=== PATIENT | male | born 1955 | race Caucasian/White ===

== ENCOUNTER 2019-04-11 14:44 | Outpatient (RCR) | payer MEDICAID, SELFPAY | END 2019-04-11 23:59 | disposition home or self-care (01) | LOC: ANHAUDIO 14:44 | DX: Z46.1 Encounter for fitting and adjustment of hearing aid (principal) | CPT/HCPCS: 99199 ==

== ENCOUNTER 2019-11-30 12:20 | Outpatient (RCR) | payer MEDICAID, SELFPAY | END 2019-11-30 23:59 | disposition home or self-care (01) | LOC: ANHAUDIO 12:20 | PROVIDERS: PCP Family Medicine | DX: Z46.1 Encounter for fitting and adjustment of hearing aid (principal) | CPT/HCPCS: 99199 ==

== ENCOUNTER 2020-07-23 11:00 | Outpatient (RCR) | payer MEDICAID, SELFPAY | END 2020-10-09 23:59 | disposition home or self-care (01) | LOC: ANHBWCAUD 11:00 | PROVIDERS: PCP Family Medicine; Visit Provider Family Medicine | DX: Z46.1 Encounter for fitting and adjustment of hearing aid (principal) | CPT/HCPCS: 99199 ==